=== PATIENT | female | born 1985 | race Caucasian/White ===

== ENCOUNTER 2017-03-18 09:29 | Emergency (ER) | payer OTHER ==
[~2017-03-18] VITALS: Ht 154.9 cm; Wt 62.9 kg
[~2017-03-18 09:29] MED LIST: ALBU18HF HOMEINH; ALBU6.7H HOMEINH; ALPR0.5T10 PO; BUPR-86 PO; CITA20TA5 PO; TOPI50TA35 PO
[2017-03-18] MEDS ORDERED: SODIUM CHLORIDE 0.9% 1,000 ML IV ONE (09:59)
[2017-03-18] MEDS ORDERED: SODIUM CHLORIDE FLUSH 10ML SYR IVF ONE (10:00)
[2017-03-18] MEDS ORDERED: ONDANSETRON 2MG/ML, 2ML IVPush ONE (10:00)
[2017-03-18] MEDS ORDERED: HYDROmorphone 1 MG/ML, 1ML ONE ×2 (10:06→12:09)
[2017-03-18] MEDS ORDERED: ONDANSETRON 2MG/ML, 2ML ONE (10:07)
[2017-03-18 10:18] LABS: HEMATOCRIT 43.9 % (34.6-47.8); WHITE BLOOD COUNT 6.8 x10^3/uL (3.4-10)
[2017-03-18] MEDS: HYDROmorphone 1 MG/ML, 1ML IVPush PRN ×2 (10:20→12:12)
[2017-03-18 10:30] LABS: BLOOD UREA NITROGEN 12 mg/dL (7-18)
[2017-03-18 10:34] LABS: ASPARTATE AMINO TRANSFERASE 9 U/L (15-37)
[2017-03-18] MEDS ORDERED: OMNIPAQUE 350 MG/ML, 100ML BOTTLE ONE (11:48)
[2017-03-18 12:33] VITALS: BP 107/73
== END 2017-03-18 12:36 | disposition home or self-care (01) ==
LOC: ED 10:02
DX: R10.31 Right lower quadrant pain (principal); J45.909 Unspecified asthma, uncomplicated; Z90.710 Acquired absence of both cervix and uterus
CPT/HCPCS: 36415; 74177; 76830; 80053; 81003; 83690; 85025; 96361; 96374; 96375; 96376; 99285; J1170; J2405; J7030; Q9967